=== PATIENT | female | born 1965 | race Caucasian/White ===

== ENCOUNTER 2021-12-06 07:06 | Day surgery (SDC) | payer OTHER ==
[~2021-12-06] VITALS: Ht 160 cm; Wt 75.7 kg
[2021-12-06] MEDS ORDERED: diphenhydrAMINE 50 MG/ML VIAL ONE (09:47)
[2021-12-06] MEDS ORDERED: fentaNYL citrate 0.05 MG/ML VIAL ONE (09:47)
[2021-12-06] MEDS ORDERED: MIDAZOLAM 5 MG/5 ML VIAL ONE (09:47)
[2021-12-06] MEDS ORDERED: fentaNYL citrate 0.05 MG/ML VIAL IVP ONE (11:10)
[2021-12-06] MEDS ORDERED: MIDAZOLAM 2 MG/2 ML VIAL IVP ONE (11:10)
== END 2021-12-06 11:10 | disposition home or self-care (01) ==
LOC: MOR 07:06 → MMU 08:06 → MOR 11:10
PROVIDERS: ATTEND Internal Medicine Gastroenterology
DX: R10.13 Epigastric pain (principal); K29.70 Gastritis, unspecified, without bleeding; R74.01 Elevation of levels of liver transaminase levels; I10 Essential (primary) hypertension; E78.5 Hyperlipidemia, unspecified; K21.9 Gastro-esophageal reflux disease without esophagitis; Z20.822 Contact with and (suspected) exposure to COVID-19; Z90.710 Acquired absence of both cervix and uterus; Z80.0 Family history of malignant neoplasm of digestive organs; Z79.84 Long term (current) use of oral hypoglycemic drugs; Z83.71 Family history of colonic polyps; Z79.899 Other long term (current) drug therapy
CPT/HCPCS: 43239; 87426; 88305; 88312; 88313; 88342; J2250; J3010; J1200